=== PATIENT | female | born 1965 | race African-American/Black ===

== ENCOUNTER → 2019-08-22 | Day surgery (SDC) | payer OTHER ==
[2019-08-19 14:49] LABS: BASOPHILS % 0.5 % (0.0-1.0); EOSINOPHILS # (AUTO) 0.1 (0.0-0.4); EOSINOPHILS % 0.9 % (0.0-6.0); HEMATOCRIT 26.1 % (34.2-44.1); HEMOGLOBIN 7.6 g/dL (12.0-16.0); LYMPHOCYTES # (AUTO) 1.6 (1.0-3.2); LYMPHOCYTES % 20.4 % (18.0-39.1); MEAN CORPUSCULAR HEMOGLOBIN 21.6 pg (28-32); MEAN CORPUSCULAR HGB CONC 29.1 g/dL (31-35); MEAN CORPUSCULAR VOLUME 74.1 fL (81-99); MONOCYTES # (AUTO) 0.8 (0.2-0.8); MONOCYTES % 10.5 % (4.4-11.3); NEUTROPHILS # (AUTO) 5.3 (2.1-6.9); NEUTROPHILS % 66.8 % (38.7-80.0); PLATELET COUNT 526 x10e3/uL (140-360); RED BLOOD COUNT 3.52 x10e6/uL (3.6-5.1); RED CELL DISTRIBUTION WIDTH 17.6 % (11.7-14.4)
[2019-08-19 15:09] LABS: ANION GAP 12.9 mmol/L (8-16); BLOOD UREA NITROGEN 10 mg/dL (7-26); BUN/CREATININE RATIO 10 (6-25); CALCIUM 9.6 mg/dL (8.4-10.2); CARBON DIOXIDE 28 mmol/L (22-29); CHLORIDE 101 mmol/L (98-107); CREATININE, SERUM 0.99 mg/dL (0.57-1.11); EST GLOMERULAR FILTRATION RATE > 60 ML/MIN (60-); GLUCOSE 125 mg/dL (74-118); POTASSIUM 3.9 mmol/L (3.5-5.1); SODIUM 138 mmol/L (136-145)
[~2019-08-22] MED LIST: ACETAMINOPHEN 1000 MG/100 ML IV ONE; ALLEVE PO; BP MED PO; BUPIVACAINE 0.25% 30ML SDV INJ ONE; BUPIVACAINE 0.25%/EPI 30ML SDV INJ ONE; CLINDAMYCIN PO; DEXAMETHASONE SOD PHOS INJ 4 MG/ML VIAL ONE; EPHEDRINE SULFATE INJ 50 MG/10 ML SYR ONE; FENTANYL CITRATE/PF 100MCG/2 ML INJ ONE; FUROSEMIDE INJ 10 MG/ML 4 ML VIAL ONE; HEPARIN SOD (PORCINE) 5,000 UNIT/ML VIAL ONE; HYDROCODONE/APAP 7.5MG-325MG 1 EA TAB ONE; IBUPROFEN400 MG PO; LIDOCAINE HCL 2% LOCAL INJ 5 ML SDV VIAL INJ ONE; MIDAZOLAM HCL 2 MG/2 ML VIAL ONE; ONDANSETRON HCL INJ 2MG/ML 2ML 2 MG/ML VIAL ONE; PHENYLEPHRINE HCL 1% 10 MG/ML VIAL ONE; PROPOFOL IV EMULSION 10 MG/ML 20 ML VIAL ONE; SEVOFLURANE INHAL SOLN 250 ML PEN BTL ONE; SODIUM CHLORIDE 0.9% 500ML 500 ML ONE
--- OUTSIDE RECORDS SUMMARY | 2019-08-22 11:16 | XMS REPORT ---
Author Author [facility] Address Unknown Phone Unavailable Care Team Providers Care Log Buyer Name Role Phone Unavailable Unavailable Payers Payer Name Policy Type Policy Number Effective Date Expiration Date Problems This patient has no known problems. Allergies, Adverse Reactions, Alerts Allergy Name Allergy Type Status Severity Reaction(s) Onset Date Inactive Date Treating Clinician Comments No Known Allergies DA Active U 2014-03-27 00:00:00 Medications This patient has no known medications. Results Test Description Test Time Test Comments Text Results Atomic Results Result Comments - CT HEAD/BRAIN W/CONT 2019-08-12 05:15:00 Name: KAILEY FERNÁNDEZ [facility] : 1965 Age/S: 53 / F [address] [facility] Unit #: [id number] Loc: [place] [address] Phys: Greg Dhillon MD Acct: [id number] Dis Date: Status: REG ER PHONE #: [phone] Exam Date: 08/12/2019 0500 FAX #: [phone] Reason: headache cancer EXAMS: CPT CODE: [id number] CT HEAD/BRAIN W/CONT 95416 AFTER HOURS SERVICE ON: 08/12/2019 5:[address] Scan of the Brain With Contrast Location Code M12 History: headache cancer Technique: Scans were performed on a helical scanner post IV contrast only. One or more of the following dose reduction techniques were used: Automated exposure control, adjustment of the mA and/or kV according to patient size, and/or utilization of iterative reconstruction technique. Findings: There is no midline shift or mass effect. Basal cisterns and lateral ventricles appear normal. No abnormal enhancement is seen. Impression: Unremarkable post contrast head CT. at 0515 Reported and signed by: Oriana Gonzales M.D. CC: Greg Dhillon MD Technologist:RT ARCELIA CTDI: DLP: Trnscb Date/Time: 08/12/2019 (05) [email or web address] Orig Print D/T: S: 08/12/2019 (0518) PAGE 1 Signed Report - US BRST W AX COMP LT 2019-08-12 04:11:00 Name: KAILEY FERNÁNDEZ [facility] : 1965 Age/S: 53 / F [address] [facility] Unit #: [id number] Loc: [place] [address] Phys: Greg Dhillon MD Acct: [id number] Dis Date: Status: REG ER PHONE #: [phone] Exam Date: 08/12/2019 021 FAX #: [phone] Reason: L breast mass, redness EXAMS: CPT CODE: [id number] [place] [address] LOCATION: T18 EXAM: - US BRST W AX COMP LT INDICATION: L breast mass, redness COMPARISON: None. TECHNIQUE: Real-time grayscale sonographic images of the left breast are submitted for interpretation. FINDINGS: Hypoechoic solid mass within the left axilla measuring 3.7 x 2.7 x 3 cm. Margins are well-circumscribed. Findings concerning for malignancy. Additional hypoechoic solid masses within the left breast measuring 3.9 x 3.3 x 3.2 cm in 2 x 1.7 x 2.4 cm. IMPRESSION: Multiple masses in the left breast and left axilla. Recommend dedicated diagnostic mammogram. at 0411 Reported and signed by: Duy Billings M.D. CC: Greg Dhillon MD Technologist: HUGH TRAMMELL RDMS Trnscb Date/Time: 08/12/2019 (041) [email or web address] Orig Print D/T: S: 08/12/2019 (0414) Probe: PAGE 1 Signed Report BASIC METABOLIC PANEL 2019-08-12 02:50:00 SODIUM (test code=NA) 142 mmol/L 136-145 POTASSIUM (test code=K) 4.0 mmol/L 3.5-5.1 CHLORIDE (test code=CL) 106.0 mmol/L 98-107 CARBON DIOXIDE (test code=CO2) 30.0 mmol/L 21-32 ANION GAP (test code=GAP) 10.0 10-20 GLUCOSE (test code=GLU) 115 mg/dL 74-106 BLOOD UREA NITROGEN (test code=BUN) 8 mg/dL 7-18 GLOMERULAR FILTRATION RATE (test code=GFR) > 60 mL/min >=60 Estimated GFR by using Modified MDRD formula.Chronic kidney disease is defined as either kidney damageor GFR <60 mL/min/1.73 m2 for >3 months. CREATININE (test code=CREAT) 0.80 mg/dL 0.55-1.02 Note change in reference range due to change in reagent. BUN/CREATININE RATIO (test code=BUN/CREA) 9.7 10-20 CALCIUM (test code=CA) 9.3 mg/dL 8.5-10.1 [id number] 02:50:00* Test Item Value Reference Range Comments TROPONIN-I (test code=TROPI) <0.015 ng/mL 0-0.045 BASIC METABOLIC [id number] 02:33:00* Test Item Value Reference Range Comments SODIUM (test code=NA) 142 mmol/L 136-145 POTASSIUM (test code=K) 4.0 mmol/L 3.5-5.1 CHLORIDE (test code=CL) 106.0 mmol/L 98-107 CARBON DIOXIDE (test code=CO2) mmol/L 21-32 ANION GAP (test code=GAP) 10-20 GLUCOSE (test code=GLU) mg/dL 74-106 BLOOD UREA NITROGEN (test code=BUN) mg/dL 7-18 GLOMERULAR FILTRATION RATE (test code=GFR) mL/min >=60 CREATININE (test code=CREAT) mg/dL 0.55-1.02 BUN/CREATININE RATIO (test code=BUN/CREA) 10-20 CALCIUM (test code=CA) mg/dL 8.5-10.1 [id number] 02:33:00* Test Item Value Reference Range Comments TROPONIN-I (test code=TROPI) ng/mL 0-0.045 - XR CHEST 1 [id number] 01:55:00 FAX: Greg Dhillon MD [phone] [place]: St: REG Name: KAILEY FERNANDEZ [facility] : [birth year] Age/S: 53/F [address] [facility] Unit #: [id number] [place]: [place] [address] Phys: Greg Dhillon MD Acct: [id number] Dis Date: Status: REG ER PHONE #: [phone] Exam Date: 08/12/2019 0137 FAX #: [phone] Reason: cough EXAMS: CPT CODE: [id number] XR CHEST 1 V 53378 LOCATION: Q15 HISTORY: 53-year-old female who presents with a cough. COMMENT: A frontal chest radiograph was obtained at 1:26 a.m. The lungs are clear. Mild, generalized cardiac enlargement is present. Also seen is a mildly uncoiled and ectatic thoracic aorta. The elias and mediastinum are unremarkable. The skeleton and soft tissues are unremarkable. IMPRESSION: There is no radiographic evidence of acute cardiopulmonary disease. The cardiac silhouette is mildly enlarged. at 0155 Reported and signed by: Alireza Nettles M.D. CC: Greg Dhillon MD Technologist: Cherelle Hayes Trnscrd Date/Time/By: 08/12/2019 (0155) : By: [email or web address] Orig Print D/T: S: 08/12/2019 (0159) PAGE 1 Signed Report CBC W/AUTO DIFF 2019-08-12 00:39:00* Test Item Value Reference Range Comments WHITE BLOOD CELL (test code=WBC) 7.9 K/mm3 4.5-12.5 RED BLOOD CELL (test code=RBC) 3.60 mill/mm3 3.7-5.2 HEMOGLOBIN (test code=HGB) 7.8 gram/dL 11.5-15.5 HEMATOCRIT (test code=HCT) 27.6 % 36.0-46.0 MEAN CELL VOLUME (test code=MCV) 76.7 fL 80-98 MEAN CELL HGB (test code=MCH) 21.7 picogram 27.0-33.0 MEAN CELL HGB CONCETRATION (test code=MCHC) 28.3 gram/dL 33.0-36.0 RED CELL DISTRIBUTION WIDTH (test code=RDW) 17.2 % 11.6-16.2 RED CELL DISTRIBUTION WIDTH SD (test code=RDW-SD) 47.8 fL 37.0-51.0 PLATELET COUNT (test code=PLT) 436 K/mm3 150-450 MEAN PLATELET VOLUME (test code=MPV) 10.1 fL 6.7-11.0 NEUTROPHIL % (test code=NT%) 72.3 % 39.0-69.0 IMMATURE GRANULOCYTE % (test code=IG%) 0.9 % 0.0-5.0 LYMPHOCYTE % (test code=LY%) 18.3 % 25.0-55.0 MONOCYTE % (test code=MO%) 7.1 % 0.0-10.0 EOSINOPHIL % (test code=EO%) 1.0 % 0.0-5.0 BASOPHIL % (test code=BA%) 0.4 % 0.0-1.0 NUCLEATED RBC % (test code=NRBC%) 0.0 % 0-0 NEUTROPHIL # (test code=NT#) 5.71 K/mm3 1.8-7.7 IMMATURE GRANULOCYTE # (test code=IG#) 0.07 x10 3/uL 0-0.03 LYMPHOCYTE # (test code=LY#) 1.44 K/mm3 1.0-5.0 MONOCYTE # (test code=MO#) 0.56 K/mm3 0-0.8 EOSINOPHIL # (test code=EO#) 0.08 K/mm3 0.0-0.5 BASOPHIL # (test code=BA#) 0.03 K/mm3 0.0-0.2 NUCLEATED RBC # (test code=NRBC#) 0.00 K/mm3 0.0-0.1 MANUAL DIFF REQUIRED (test code=MDIFF) NO - CT HEAD/BRAIN W/O [id number] 23:59:00 Name: KAILEY FERNÁNDEZ [facility] : 1965 Age/S: 53 / F [address] [facility] Unit #: [id number] Loc: [place] [address] Phys: Greg Dhillon MD Acct: [id number] Dis Date: Status: REG ER PHONE #: [phone] Exam Date: 08/11/2019 2325 FAX #: [phone] Reason: headache EXAMS: CPT CODE: [id number] CT HEAD/BRAIN W/O CONT 81179 Location: T18 CT head, conducted on 08/11/19 COMPARISON EXAMS:None of the brain TECHNIQUE: CT examination of the brain was performed without contrast on a helical scanner. Scanning conducted from skull base to vertex in the axial plane acquiring contiguous 5mm slice thickness . The examination was performed on a [facility] at helical CT scanner utilizing low-dose radiation technique. Automatic exposure control timing was utilized to minimize radiation dose. CLINICAL HISTORY: Headache. Patient presenting to the ER FINDINGS: No positive mass-effect, midline shift, extra-axial fluid collections or intracranial hemorrhages seen. In particular, no subarachnoid hemorrhage is identified. No intra or extra- axial masses. Bone windows unremarkable. No significant sinus disease is noted. No acute territorial infarction is seen. I MPRESSION: Unremarkable CT examination of the brain without contrast at 2029 Reported and signed by: Diamond gutierrez M.D. CC: Greg Dhillon MD Technologist:RT ARCELIA CTDI: DLP: Trnscb Claudio e/Time: 08/11/2019 (2309) [email or web address] Orig Print D/T: S: (0002) PAGE 1 Signed Report
--- NOTE | 2019-08-22 16:04 | Operative Report ---
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 Pending permanent sections. OPERATION PERFORMED: Left partial mastectomy and placement of right subclavian venous access port under C-arm guidance. MANAGEMENT ENGINEER: JACQUELINE Harmon. ANESTHESIA: General endotracheal. COMPLICATIONS: None. ESTIMATED BLOOD LOSS: 25 mL. DESCRIPTION OF PROCEDURE: With the patient lying in bed in the supine position, under good general anesthesia, the chest and both breasts were prepped with Betadine solution and draped in the usual manner. The left breast biopsy was done first, there was a large palpable mass in the upper outer quadrant of the left breast with some skin changes. We decided to go ahead and take some of the skin to rule out inflammatory carcinoma. An ellipse of skin overlying the mass was then taken. The incision was deepened through the subcutaneous tissue and through the breast tissue the entire mass was totally and completely removed, properly oriented and sent for pathological examination. We obviously cutting through what appeared to be a tumor in some of the milk duct, so all of the gross palpable mass was removed, this was not a complete resection of all the tumor present within the breast. The specimen was sent for frozen section, which came back as carcinoma. The whole area was then thoroughly irrigated. Perfect hemostasis was ascertained. The breast tissue was then reapproximated with interrupted sutures of 2-0 chromic and the skin was closed with interrupted vertical mattress sutures of 3-0 nylon. Gloves and instruments were then changed. The patient was placed in the Trendelenburg position and a standard right subclavian venipuncture was then performed without any difficulty and a guidewire was advanced into central venous position. The tip of the guidewire was confirmed to be at the level of the superior vena cava with the C-arm, and the left lung was fully expanded. A pocket was then created in the left anterior chest to accept the reservoir. The catheter was then threaded to the subclavian position and the reservoir was anchored to the anterior chest wall with interrupted sutures of 2-0 silk. The reservoir and catheter were fully heparinized and the catheter was cut to the appropriate lengths. The peel-away sheath was then placed over the guidewire. The guidewire was removed and the catheter was threaded through the peel-away sheath, and the peel-away sheath was then removed. There was good blood return, and the reservoir and catheter were fully heparinized. Using the C-arm, the tip of the catheter was confirmed to be at the level of the superior vena cava and the right lung was fully expanded. The wounds were then closed in layers. The subcutaneous tissue was approximated with 3-0 and 4-0 Vicryl, and the skin was closed with subcuticular 5-0 Vicryl. Benzoin, Steri- Strips, Band-Aids, and dressings were applied. The sponge, lap, and needle counts were correct. The patient tolerated the procedure well and returned to the recovery room in stable condition. MD ANTONIETTA Honeycutt/WINDY /[id number]
[2019-08-22 18:15] VITALS: BP 142/87
== END | disposition home or self-care (01) ==
LOC: OR 11:13
PROVIDERS: ATTEND Surgery
DX: C50.412 Malignant neoplasm of upper-outer quadrant of left female breast (principal); D64.9 Anemia, unspecified; I10 Essential (primary) hypertension; R05 Cough; E66.01 Morbid (severe) obesity due to excess calories; Z01.810 Encounter for preprocedural cardiovascular examination; Z01.812 Encounter for preprocedural laboratory examination
CPT/HCPCS: 19301; 36415; 36561; 77001; 80048; 85025; 86850; 86900; 86920; 88307; 88331; 93005; C1751; J0131; J1100; J1644; J1940; J2001; J2250; J2370; J2405; J2704; J3010; J7040; P9016